=== PATIENT | male | born 1970 | race Caucasian/White ===

== ENCOUNTER → 2018-02-10 15:50 | Outpatient (CLI) | payer OTHER, SELFPAY ==
[2018-02-10 17:37] LABS: Cholesterol 171 mg/dL (140-199); HDL Cholesterol 45 mg/dL (40-60); LDL Cholesterol Calculated 80 mg/dL (<100); Triglycerides 230 mg/dL (35-150)
[2018-02-10 18:03] LABS: Thyroid Stimulating Hormone 0.54 uIU/mL (0.47-4.68)
[2018-02-11 09:04] LABS: Troponin I < 0.012 ng/mL (0.01-0.034)
== END ==
PROVIDERS: PCP Internal Medicine; Visit Provider Internal Medicine
DX: R79.89 Other specified abnormal findings of blood chemistry (principal); E11.9 Type 2 diabetes mellitus without complications; R60.0 Localized edema; I48.2 Chronic atrial fibrillation; I10 Essential (primary) hypertension; R94.31 Abnormal electrocardiogram [ECG] [EKG]
CPT/HCPCS: 36415; 80061; 84403; 84443; 84484